=== PATIENT | female | born 1970 | race Caucasian/White ===

== ENCOUNTER 2022-06-22 06:31 | Day surgery (SDC) | payer BC ==
[~2022-06-22 06:31] MED LIST: Sodium Chloride 0.9% 10 ML Syringe FLUSH PRN
[2022-06-22] MEDS ORDERED: Propofol 200 MG/20 ML SDV IV ONE (06:32)
[2022-06-22] MEDS: Lactated Ringers 1,000 ML IV SCH (06:56)
[2022-06-22] MEDS: Simethicone Drops 40 MG/0.6 ML 30 ML Bottle PO ONE (07:46)
== END 2022-06-22 08:55 | disposition home or self-care (01) ==
LOC: FB.SDS 06:31
PROVIDERS: ATTEND Surgery
DX: Z12.11 Encounter for screening for malignant neoplasm of colon (principal); Z79.899 Other long term (current) drug therapy; Z88.6 Allergy status to analgesic agent; Z88.5 Allergy status to narcotic agent; Z98.1 Arthrodesis status; Z79.82 Long term (current) use of aspirin
CPT/HCPCS: 00812; 45378; 81025; A9270; J2704; J7120